=== PATIENT | female | born 1980 | race Caucasian/White ===

== ENCOUNTER 2017-08-29 05:45 | Observation (INO) | payer OTHER ==
[2017-08-29] MEDS ORDERED: SODIUM CHLORIDE 0.9% 1,000 ML IV STA (06:37)
[2017-08-29] MEDS ORDERED: SODIUM CHLORIDE 0.9% 500 ML IV STA (06:37)
[2017-08-29] MEDS ORDERED: ONDANSETRON 4 MG/2 ML VIAL IVP STA (06:37)
[2017-08-29] MEDS ORDERED: PANTOPRAZOLE 40 MG/10 ML VIAL IVP STA (06:38)
--- NOTE | 2017-08-29 06:40 | ED ---
General Adult HPI - General Chief complaint: Nausea/Vomiting/Diarrhea Stated complaint: N/V/D, rectal bleed Time Seen by Provider: 08/29/17 06:26 Source: patient, family, RN notes reviewed, old records reviewed Mode of arrival: ambulatory Limitations: no limitations - History of Present Illness Initial comments: This is a 36-year-old femalewho is presenting to the ER with severe nausea vomiting and diarrhea review. Patient is severely diarrhea, liquid diarrhea feels weak and lightheaded. No specific abdominal pain. No travel history. Patient states she has had some blood in her stool possibly from wiping.she has not been feeling good since yesterday. She has no known sick contacts no similar friends or family with similar symptoms. No fevers. no recent change in medications - Related Data Home Medications Medication Instructions Recorded Confirmed Ibuprofen [Motrin] 200 - 800 mg PO Q6HR PRN 08/29/17 08/29/17 Allergies Allergy/AdvReac Type Severity Reaction Status Date / Time No Known Allergies Allergy Verified 08/29/17 07:21 Review of Systems ROS Statement: Those systems with pertinent positive or pertinent negative responses have been documented in the HPI. ROS Other: All systems not noted in ROS Statement are negative. Past Medical History Past Medical History: No Reported History Additional Past Medical History / Comment(s): EPIGASTRIC PAIN, back pain History of Any Multi-Drug Resistant Organisms: None Reported Past Surgical History: Cholecystectomy, Hernia Repair, Tubal Ligation Additional Past Surgical History / Comment(s): Rhinoplasty Past Anesthesia/Blood Transfusion Reactions: No Reported Reaction Past Psychological History: No Psychological Hx Reported Smoking Status: Current every day smoker Past Alcohol Use History: Rare Past Drug Use History: None Reported - Past Family History Mother Family Medical History: Cancer, Deep Vein Thrombosis (DVT), Pulmonary Embolus Additional Family Medical History / Comment(s): COLON Father Family Medical History: Cancer Additional Family Medical History / Comment(s): PROSTATE General Exam Limitations: no limitations General appearance: alert, in no apparent distress Head exam: Present: atraumatic, normocephalic, normal inspection Eye exam: Present: normal appearance, PERRL, EOMI. Absent: scleral icterus, conjunctival injection, periorbital swelling ENT exam: Present: normal exam, mucous membranes moist Neck exam: Present: normal inspection. Absent: tenderness, meningismus, lymphadenopathy Respiratory exam: Present: normal lung sounds bilaterally. Absent: respiratory distress, wheezes, rales, rhonchi, stridor Cardiovascular Exam: Present: normal rhythm, tachycardia, normal heart sounds. Absent: systolic murmur, diastolic murmur, rubs, gallop, clicks GI/Abdominal exam: Present: soft, normal bowel sounds. Absent: distended, tenderness, guarding, rebound, rigid Extremities exam: Present: normal inspection, full ROM, normal capillary refill. Absent: tenderness, pedal edema, joint swelling, calf tenderness Back exam: Present: normal inspection Neurological exam: Present: alert, oriented X3, CN II-XII intact Psychiatric exam: Present: normal affect, normal mood Skin exam: Present: warm, dry, intact, normal color. Absent: rash Course Vital Signs 08/29/17 08/29/17 05:49 08:00 Temperature 99.0 F 98.5 F Pulse Rate 100 78 Respiratory 18 178 H Rate Blood Pressure 121/86 130/81 O2 Sat by Pulse 100 99 Oximetry - Reevaluation(s) Reevaluation #1: 08/29/17 07:20 patient is still is abdominal pain at this time bowel pain and bright red blood per rectum Medical Decision Making - Medical Decision Making 36 female to ER for evaluation. This patient presents for evaluation regarding bright red blood per rectum, abdominal pain. Significant bloody bowel movements , diarrhea or bloody diarrhea. Patient has CT positive for colitis, will admit for monitoring of hemoglobin, resuscitation - Lab Data Result diagrams: 08/29/17 18:28 08/29/17 06:10 Lab Results 08/29/17 08/29/17 08/29/17 Range/Units 06:10 06:10 06:10 WBC 18.3 H (3.8-10.6) k/uL RBC 5.26 (3.80-5.40) m/uL Hgb 16.0 (11.4-16.0) gm/dL Hct 49.1 H (34.0-46.0) % MCV 93.3 (80.0-100.0) fL MCH 30.5 (25.0-35.0) pg MCHC 32.6 (31.0-37.0) g/dL RDW 12.7 (11.5-15.5) % Plt Count 318 (150-450) k/uL Neutrophils % 86 % Lymphocytes % 10 % Monocytes % 4 % Eosinophils % 0 % Basophils % 0 % Neutrophils # 15.7 H (1.3-7.7) k/uL Lymphocytes # 1.8 (1.0-4.8) k/uL Monocytes # 0.7 (0-1.0) k/uL Eosinophils # 0.1 (0-0.7) k/uL Basophils # 0.0 (0-0.2) k/uL Sodium 139 (137-145) mmol/L Potassium 4.2 (3.5-5.1) mmol/L Chloride 103 (98-107) mmol/L Carbon Dioxide 22 (22-30) mmol/L Anion Gap 14 mmol/L BUN 9 (7-17) mg/dL Creatinine 0.60 (0.52-1.04) mg/dL Est GFR (MDRD) Af Amer >60 (>60 ml/min/1.73 sqM) Est GFR (MDRD) Non-Af >60 (>60 ml/min/1.73 sqM) Glucose 127 H (74-99) mg/dL Calcium 10.0 (8.4-10.2) mg/dL Phosphorus 4.4 (2.5-4.5) mg/dL Magnesium 1.9 (1.6-2.3) mg/dL Total Bilirubin 0.8 (0.2-1.3) mg/dL AST 41 H (14-36) U/L ALT 96 H (9-52) U/L Alkaline Phosphatase 117 (38-126) U/L Total Creatine Kinase 39 (30-135) U/L CK-MB (CK-2) 0.4 (0.0-2.4) ng/mL CK-MB (CK-2) Rel Index 1.0 C-Reactive Protein (<10.0) mg/L Total Protein 7.9 (6.3-8.2) g/dL Albumin 4.7 (3.5-5.0) g/dL Lipase (23-300) U/L Urine Color Urine Appearance (Clear) Urine pH (5.0-8.0) Ur Specific [place] (1.001-1.035) Urine Protein (Negative) Urine Glucose (UA) (Negative) Urine Ketones (Negative) Urine Blood (Negative) Urine Nitrite (Negative) Urine Bilirubin (Negative) Urine Urobilinogen (<2.0) mg/dL Ur Leukocyte Esterase (Negative) 08/29/17 08/29/17 08/29/17 Range/Units 06:10 06:10 06:45 WBC (3.8-10.6) k/uL RBC (3.80-5.40) m/uL Hgb (11.4-16.0) gm/dL Hct (34.0-46.0) % MCV (80.0-100.0) fL MCH (25.0-35.0) pg MCHC (31.0-37.0) g/dL RDW (11.5-15.5) % Plt Count (150-450) k/uL Neutrophils % % Lymphocytes % % Monocytes % % Eosinophils % % Basophils % % Neutrophils # (1.3-7.7) k/uL Lymphocytes # (1.0-4.8) k/uL Monocytes # (0-1.0) k/uL Eosinophils # (0-0.7) k/uL Basophils # (0-0.2) k/uL Sodium (137-145) mmol/L Potassium (3.5-5.1) mmol/L Chloride (98-107) mmol/L Carbon Dioxide (22-30) mmol/L Anion Gap mmol/L BUN (7-17) mg/dL Creatinine (0.52-1.04) mg/dL Est GFR (MDRD) Af Amer (>60 ml/min/1.73 sqM) Est GFR (MDRD) Non-Af (>60 ml/min/1.73 sqM) Glucose (74-99) mg/dL Calcium (8.4-10.2) mg/dL Phosphorus (2.5-4.5) mg/dL Magnesium (1.6-2.3) mg/dL Total Bilirubin (0.2-1.3) mg/dL AST (14-36) U/L ALT (9-52) U/L Alkaline Phosphatase (38-126) U/L Total Creatine Kinase (30-135) U/L CK-MB (CK-2) (0.0-2.4) ng/mL CK-MB (CK-2) Rel Index C-Reactive Protein 11.4 H (<10.0) mg/L Total Protein (6.3-8.2) g/dL Albumin (3.5-5.0) g/dL Lipase 23 (23-300) U/L Urine Color Yellow Urine Appearance Clear (Clear) Urine pH 6.0 (5.0-8.0) Ur Specific [place] 1.007 (1.001-1.035) Urine Protein Negative (Negative) Urine Glucose (UA) Negative (Negative) Urine Ketones Negative (Negative) Urine Blood Negative (Negative) Urine Nitrite Negative (Negative) Urine Bilirubin Negative (Negative) Urine Urobilinogen <2.0 (<2.0) mg/dL Ur Leukocyte Esterase Negative (Negative) - Radiology Data Radiology results: report reviewed (CT abdomen and pelvis is positive for colitis), image reviewed Disposition Clinical Impression: Gastroenteritis, Colitis, GIB (gastrointestinal bleeding) Disposition: ADMITTED IP TO THIS HOSP Condition: Fair
[2017-08-29 06:46] LABS: Basophils % (A) 0 %; CH 31.5; Eosinophils # (A) 0.1 k/uL (0-0.7); Eosinophils % (A) 0 %; HCT 49.1 % (34.0-46.0); HDW 2.73; Luc % (Auto) 1; Lymphocytes # (A) 1.8 k/uL (1.0-4.8); Lymphocytes % (A) 10 %; MCH 30.5 pg (25.0-35.0); MCHC 32.6 g/dL (31.0-37.0); MCV 93.3 fL (80.0-100.0); Mean Platelet Volume 8.1; Monocytes # (A) 0.7 k/uL (0-1.0); Monocytes % (A) 4 %; Neutrophils # (A) 15.7 k/uL (1.3-7.7); Neutrophils % (A) 86 %; RBC 5.26 m/uL (3.80-5.40); RDW 12.7 % (11.5-15.5); WBC 18.3 k/uL (3.8-10.6); WBC (Perox) 17.36
[2017-08-29] MEDS ORDERED: RX INFO: IV CONTRAST WAS GIVEN 1 EACH MISC MISCELLANE PRN (06:46)
[2017-08-29] MEDS ORDERED: diphenhydrAMINE 50 MG/ML 1 ML VIAL IVP STA (06:46)
[2017-08-29] MEDS ORDERED: KETOROLAC 30 MG/ML 1 ML VIAL IVP STA (06:46)
[2017-08-29] MEDS ORDERED: LORazepam 2 MG/ML INJ IV STA ×2 (06:46→10:46)
[2017-08-29] MEDS ORDERED: MORPHINE SULFATE 10 MG/ML SYRINGE IVP STA ×2 (06:46→18:39)
[2017-08-29 06:55] LABS: Appearance,Urine Clear (Clear); Bilirubin,Urine Negative (Negative); Glucose,Urine (UA) Negative (Negative); Ketones,Urine Negative (Negative); Leukocyte Esterase,Urine Negative (Negative); Nitrite,Urine Negative (Negative); Protein,Urine Negative (Negative); Specific Gravity,Urine 1.007 (1.001-1.035); UA Billing (MACRO vs. MICRO) CHEM; Urobilinogen,Urine <2.0 mg/dL (<2.0)
[2017-08-29 06:56] LABS: ALT 96 U/L (9-52); AST 41 U/L (14-36); Alkaline Phosphatase 117 U/L (38-126); Anion Gap 14 mmol/L; Blood Urea Nitrogen 9 mg/dL (7-17); Carbon Dioxide 22 mmol/L (22-30); Chloride 103 mmol/L (98-107); Glucose 127 mg/dL (74-99); Magnesium 1.9 mg/dL (1.6-2.3); Non-African American GFR(MDRD) >60 (>60 ml/min/1.73 sqM); Phosphorus 4.4 mg/dL (2.5-4.5); Potassium 4.2 mmol/L (3.5-5.1); Sodium 139 mmol/L (137-145); Total Bilirubin 0.8 mg/dL (0.2-1.3); Total Protein 7.9 g/dL (6.3-8.2)
[2017-08-29 07:16] LABS: Creatine Kinase MB 0.4 ng/mL (0.0-2.4)
[2017-08-29] MEDS ORDERED: SODIUM CHLORIDE 0.9% 1,000 ML IV ONE (07:19)
--- NOTE | 2017-08-29 08:20 | CT ---
EXAMINATION TYPE: CT abdomen pelvis w con DATE OF EXAM: 08/29/2017 HISTORY: Nausea, Vomiting, Diarrhea, rectal bleeding CT DLP: 1277mGycm Automated Exposure Control for Dose Reduction was Utilized. CONTRAST: CT scan of the abdomen and pelvis is performed without oral but with IV Contrast, patient injected wi th 100 mL of Omnipaque 300. COMPARISON: CT scan of pelvis June 14, 2016 FINDINGS: LUNG BASES: No significant abnormality is appreciated. LIVER/GB: There has been interval cholecystectomy with new clips noted. PANCREAS: No significant abnormality is seen. SPLEEN: No significant abnormality is seen. ADRENALS: No significant abnormality is seen. KIDNEYS: Subcentimeter low dense lesion upper pole level right kidney is too small to further charact erize per presumed benign lateral aspect image 25 series 7. BOWEL: No evaluation bowel is suboptimal secondary to lack of enteric contrast. There is no suspicio us small or large bowel dilatation identified. There is moderate to severe wall thickening in the col on from roughly level of hepatic flexure through entire transverse colon into left colon and sigmoid colon up to level of rectum. There is relative sparing of cecum noted. Finding is new from prior CT. UTERUS/ADNEXA: Rim hyperdense 2.1 cm lesion within left ovary is felt to reflect corpus luteal cyst f rom recent ovulation on axial image 66. LYMPH NODES: No greater than 1cm abdominal or pelvic lymph nodes are appreciated. OSSEOUS STRUCTURES: Sacroiliac joints are maintained. OTHER: No significant additional abnormality is seen. IMPRESSION: 1. New fairly long segment contiguous colitis with relative sparing of cecum and right colon from hep atic flexure through rectum, differential includes inflammatory or ulcerative colitis, pseudomembrano us colitis, and infectious colitis. Clinical correlation advised. No bowel obstruction is seen.
[2017-08-29 08:37] VITALS: BMI 24.5
--- NOTE | 2017-08-29 10:07 | P.HPIM ---
History of Present Illness H&P Date: 08/29/17 Chief Complaint: bloody diarrhea This is a 36-year-old female with a presents with 1 day history of bloody diarrhea. Patient says symptoms started last night has had multiple episodes to stem. His associated with some abdominal cramping. Subjective fever patient says she's been feeling cold also. No dysuria. No chest pain or palpitations. Denies having anything unusual to eat. Patient also denies having any family members have been sick. Review of Systems Constitutional: Reports fever Eyes: denies blurred vision, denies diplopia Ears, nose, mouth and throat: Denies headache, Denies sore throat Cardiovascular: Denies chest pain, Denies palpitations Gastrointestinal: Reports abdominal pain, Reports BRBPR, Reports nausea, Reports vomiting Genitourinary: Denies flank pain, Denies vaginal discharge Musculoskeletal: Denies frequent falls, Denies neck stiffness Integumentary: Denies rash Neurological: Reports weakness Psychiatric: Denies depression Endocrine: Denies polyuria Hematologic/Lymphatic: Denies easy bruising, Denies lymphadenopathy Past Medical History Past Medical History: No Reported History Additional Past Medical History / Comment(s): EPIGASTRIC PAIN, back pain History of Any Multi-Drug Resistant Organisms: None Reported Past Surgical History: Cholecystectomy, Hernia Repair, Tubal Ligation Additional Past Surgical History / Comment(s): Rhinoplasty Past Anesthesia/Blood Transfusion Reactions: No Reported Reaction Past Psychological History: No Psychological Hx Reported Smoking Status: Current every day smoker Past Alcohol Use History: Rare Additional Past Alcohol Use History / Comment(s): SMOKES 1PPD FROM AGE 15 (1995) Past Drug Use History: None Reported - Past Family History Mother Family Medical History: Cancer, Deep Vein Thrombosis (DVT), Pulmonary Embolus Additional Family Medical History / Comment(s): COLON Father Family Medical History: Cancer Additional Family Medical History / Comment(s): PROSTATE Medications and Allergies Home Medications Medication Instructions Recorded Confirmed Type Ibuprofen [Motrin] 200 - 800 mg PO Q6HR PRN 08/29/17 08/29/17 History Allergies Allergy/AdvReac Type Severity Reaction Status Date / Time No Known Allergies Allergy Verified 08/29/17 07:21 Physical Exam Vitals: Vital Signs Temp Pulse Pulse Resp BP BP Pulse Ox 08/29/17 08:31 97.5 F L 81 16 144/85 100 08/29/17 08:00 98.5 F 78 178 H 130/81 99 08/29/17 05:49 99.0 F 100 18 121/86 100 Intake and Output 08/28/17 08/29/17 08/29/17 22:59 06:59 14:59 Other: Weight 58.967 kg 58.9 kg Patient Weight 08/30/17 06:59 Weight 58.9 kg - EENT Eyes: EOMI, PERRLA - Neck Neck: no lymphadenopathy, normal ROM, no rigidity - Respiratory Respiratory: bilateral: CTA, negative: rales, rhonchi, wheezing - Cardiovascular Rhythm: regular Heart sounds: normal: S1, S2 - Gastrointestinal General gastrointestinal: no organomegaly, soft, no tenderness - Integumentary Integumentary: normal, no rash - Neurologic Neurologic: CNII-XII intact - Psychiatric Psychiatric: A&O x's 3, appropriate affect, intact judgment & insight No low extremity edema Results CBC & Chem 7: 08/29/17 06:10 08/29/17 06:10 Labs: Abnormal Lab Results - Last 24 Hours (Table) 08/29/17 08/29/17 Range/Units 06:10 06:10 WBC 18.3 H (3.8-10.6) k/uL Hct 49.1 H (34.0-46.0) % Neutrophils # 15.7 H (1.3-7.7) k/uL Glucose 127 H (74-99) mg/dL AST 41 H (14-36) U/L ALT 96 H (9-52) U/L Assessment and Plan (1) GIB (gastrointestinal bleeding) Narrative/Plan: Serial H&H Secondary to rule colitis Rule out inflammatory bowel disease Current Visit: Yes Status: Acute Code(s): K92.2 - GASTROINTESTINAL HEMORRHAGE, UNSPECIFIED SNOMED Code(s): 21235107 (2) Colitis Narrative/Plan: GI to evaluate rule out ulcerative colitis We'll start IV antibiotics Current Visit: Yes Status: Acute Code(s): K52.9 - NONINFECTIVE GASTROENTERITIS AND COLITIS, UNSPECIFIED SNOMED Code(s): 02815615
[2017-08-29] MEDS: ERTAPENEM 1 GM in SODIUM CHLORIDE 0.9% 50 ML IVPB SCH (10:42)
--- NOTE | 2017-08-29 10:51 | P.CONS ---
History of Present Illness - Reason for Consult Consult date: 08/29/17 GI bleed colitis Requesting physician: Mignon Lee - History of Present Illness 36-year-old female with no PCP past medical history of cholecystectomy, nicotine cigarette dependency presents with acute onset of abdominal cramping followed by multiple gross bloody bowel movements and a few nonbloody emesis. Denies fever or chills melena or hematemesis. No weight loss, skin rashes or changes in vision. Symptoms started around 9 PM yesterday and has since tapered off. No further emesis however patient had 3 smaller bowel movements this morning mostly blood minimal stool. Recent penicillin usage for dental infection about 2 weeks ago. Takes Aleve 2-3 tablets daily sometimes twice daily for chronic arthritic pain. CT abdomen and pelvis without oral contrast reported moderate to severe wall thickening in the colon from the level of hepatic flexure through the anterior transverse and left colon and sigmoid up to level of rectum possible inflammatory colitis possible pseudomembranous infectious colitis. No personal or familial history of inflammatory bowel disease. No history of EGD colonoscopy. No history of colitis or GI bleed. No alcohol or excessive usage of aspirin or anticoagulant medications. Her biological mother was diagnosed with colon carcinoma at 52 years of age went to [facility] and underwent bowel resection with genetic testing. Mother is at bedside and states that she was advised to have all of her children genetically tested but could not qualify if her colon cancer was genetic in origin. Additionally mother stated she had multiple emboli after surgery and takes anticoagulation on a daily basis but again cannot qualify what type of hypercoagulable condition she was given. Admission white count 18.3. Hemoglobin 16. BUN 9. Creatinine 0.6. Total bilirubin 0.8. AST 41. ALT 96. Alkaline phosphatase 117. Lipase 23. Stool studies requested and pending. Receiving Invanz. Review of Systems Constitutional: Denies fever, chills, sweats, weight gain, or loss. HEENT: Negative for migraines, blurred vision or loss, earaches, drainage, tinnitus, oral mucosal lesions, dysphagia, or odynophagia. CARDIAC: Negative for chest pain, arrhythmias, or palpitation. RESPIRATORY: Negative for shortness of breath, hemoptysis, cough, or sputum production. GI: See HPI for pertinent findings. : Negative for hematuria, urgency, frequency, polyuria, or dysuria. GYNc: Denies possibility of . Negative vaginal discharge. MUSCULOSKELETAL: Negative for muscle aches, swelling, arthritis, and arthralgias. NEUROLOGIC: Negative for stroke or TIA. ENDOCRINE: Negative for thyroid problems. SKIN: Negative for rash or itching. PSYCHIATRIC: Negative history for depression and anxiety Past Medical History Past Medical History: No Reported History Additional Past Medical History / Comment(s): EPIGASTRIC PAIN, back pain History of Any Multi-Drug Resistant Organisms: None Reported Past Surgical History: Cholecystectomy, Hernia Repair, Tubal Ligation Additional Past Surgical History / Comment(s): Rhinoplasty Past Anesthesia/Blood Transfusion Reactions: No Reported Reaction Past Psychological History: No Psychological Hx Reported Smoking Status: Current every day smoker Past Alcohol Use History: Rare Additional Past Alcohol Use History / Comment(s): SMOKES 1PPD FROM AGE 15 (1995) Past Drug Use History: None Reported - Past Family History Mother Family Medical History: Cancer, Deep Vein Thrombosis (DVT), Pulmonary Embolus Additional Family Medical History / Comment(s): COLON Father Family Medical History: Cancer Additional Family Medical History / Comment(s): PROSTATE Medications and Allergies Home Medications Medication Instructions Recorded Confirmed Type Ibuprofen [Motrin] 200 - 800 mg PO Q6HR PRN 08/29/17 08/29/17 History Allergies Allergy/AdvReac Type Severity Reaction Status Date / Time No Known Allergies Allergy Verified 08/29/17 07:21 Physical Exam Vitals: Vital Signs Temp Pulse Pulse Resp BP BP Pulse Ox 08/29/17 08:31 97.5 F L 81 16 144/85 100 08/29/17 08:00 98.5 F 78 178 H 130/81 99 08/29/17 05:49 99.0 F 100 18 121/86 100 Intake and Output 08/28/17 08/29/17 08/29/17 22:59 06:59 14:59 Other: Weight 58.967 kg 58.9 kg Patient Weight 08/30/17 06:59 Weight 58.9 kg General appearance: The patient is alert, oriented, in no acute distress. HET: Head is normocephalic and atraumatic. Pupils are equal and reactive. Oropharynx is clear without lesions. Neck: Supple without lymphadenopathy. Trachea midline. Heart: S1 S2. Regular rate and rhythm. Lungs: No crackles or wheezes are heard. Abdomen: Soft, mild tenderness across mid to lower abdomen bilaterally, nondistended with bowel sounds. No peritoneal signs. No palpable organomegaly or masses. Extremities: Normal skin color and turgor. No cyanosis, rash, ulceration, clubbing, or edema. Radial and pedal pulses are 2/4 bilaterally. Neurological: No focal deficits. Strength and sensation are grossly intact. Results CBC & Chem 7: 08/29/17 06:10 08/29/17 06:10 Labs: Abnormal Lab Results - Last 24 Hours (Table) 08/29/17 08/29/17 Range/Units 06:10 06:10 WBC 18.3 H (3.8-10.6) k/uL Hct 49.1 H (34.0-46.0) % Neutrophils # 15.7 H (1.3-7.7) k/uL Glucose 127 H (74-99) mg/dL AST 41 H (14-36) U/L ALT 96 H (9-52) U/L CT scan - abdomen: report reviewed (Dr. Hicks) Assessment and Plan (1) Colitis Narrative/Plan: 36-year-old female presents with one-day history of sudden onset of abdominal cramping and bloody diarrhea with CT imaging suggestive of inflammatory possible infectious possible ischemic colitis with underlying history of nicotine cigarette dependency and chronic NSAID usage. Biological mother has a history of colon carcinoma and thromboembolism. Current Visit: Yes Status: Acute Code(s): K52.9 - NONINFECTIVE GASTROENTERITIS AND COLITIS, UNSPECIFIED SNOMED Code(s): 56755623 (2) GIB (gastrointestinal bleeding) Current Visit: Yes Status: Acute Code(s): K92.2 - GASTROINTESTINAL HEMORRHAGE, UNSPECIFIED SNOMED Code(s): 58909540 (3) Encounter for monitoring chronic NSAID therapy Current Visit: Yes Status: Acute Code(s): Z51.81 - ENCOUNTER FOR THERAPEUTIC DRUG LEVEL MONITORING; Z79.1 - SHELTER (CURRENT) USE OF NON- STEROIDAL NON-INFLAM (NSAID) SNOMED Code(s): 031321410 (4) Nicotine dependence Current Visit: Yes Status: Acute Code(s): F17.200 - NICOTINE DEPENDENCE, UNSPECIFIED, UNCOMPLICATED SNOMED Code(s): 47675372 (5) Leukocytosis Current Visit: Yes Status: Acute Code(s): D72.829 - ELEVATED WHITE BLOOD CELL COUNT, UNSPECIFIED SNOMED Code(s): 963239933 Plan: 1. Continue antibiotics. Stool studies pending. 2. Clear liquid diet. We'll proceed with colonoscopy evaluation tomorrow. 3. CBC monitoring. 4. Hold NSAIDs and aspirin. 5. HCG testing. The demolition crane operator has discussed the risks, benefits and alternative therapies for the above-mentioned procedure and for both sedation/analgesia as well as necessary blood product administration, if indicated, as they pertain to this patient. The patient has indicated understanding and acceptance of the risks and procedures discussed. Thank you for this kind referral and the opportunity to participate in the care of your patient. This consultation was discussed with Dr. Hicks. The impression and plan of care have been directed as dictated.
[2017-08-29 11:20] LABS: CH 31.4; CHCM 33.7; HCT 39.1 % (34.0-46.0); HDW 2.72; MCH 31.1 pg (25.0-35.0); MCHC 33.2 g/dL (31.0-37.0); MCV 93.7 fL (80.0-100.0); Mean Platelet Volume 7.9; RBC 4.17 m/uL (3.80-5.40); RDW 12.7 % (11.5-15.5); WBC 10.8 k/uL (3.8-10.6)
[2017-08-29] MEDS ORDERED: PEG 3350-NA SULF,BICARB,CL/KCL 4,000 ML BOTTLE PO ONE (16:00)
[2017-08-29] MEDS: ONDANSETRON 4 MG/2 ML VIAL IVP PRN (17:17)
[2017-08-29 19:15] LABS: CH 31.4; CHCM 33.5; HCT 38.8 % (34.0-46.0); HGB 12.3 gm/dL (11.4-16.0); MCH 29.9 pg (25.0-35.0); MCHC 31.7 g/dL (31.0-37.0); MCV 94.4 fL (80.0-100.0); Mean Platelet Volume 7.9; RBC 4.11 m/uL (3.80-5.40); RDW 12.8 % (11.5-15.5); WBC 7.2 k/uL (3.8-10.6)
[2017-08-29 21:14] VITALS: TEMP 97.7
[2017-08-30 01:15] VITALS: RESP 16
[2017-08-30 01:39] LABS: CH 30.2; CHCM 33.2; HCT 36.8 % (34.0-46.0); HDW 2.57; HGB 11.9 gm/dL (11.4-16.0); MCH 29.7 pg (25.0-35.0); MCHC 32.5 g/dL (31.0-37.0); MCV 91.5 fL (80.0-100.0); Mean Platelet Volume 8.5; RBC 4.02 m/uL (3.80-5.40); RDW 13.5 % (11.5-15.5); WBC 7.3 k/uL (3.8-10.6)
[2017-08-30 06:37] LABS: CH 31.4; CHCM 33.7; HCT 36.9 % (34.0-46.0); HDW 2.69; HGB 12.1 gm/dL (11.4-16.0); MCH 30.8 pg (25.0-35.0); MCHC 32.9 g/dL (31.0-37.0); MCV 93.7 fL (80.0-100.0); Mean Platelet Volume 7.7; RBC 3.94 m/uL (3.80-5.40); RDW 12.6 % (11.5-15.5); WBC 6.3 k/uL (3.8-10.6)
[2017-08-30 06:54] LABS: Anion Gap 5 mmol/L; Blood Urea Nitrogen 8 mg/dL (7-17); Calcium 8.6 mg/dL (8.4-10.2); Carbon Dioxide 25 mmol/L (22-30); Chloride 110 mmol/L (98-107); Glucose 96 mg/dL (74-99); Non-African American GFR(MDRD) >60 (>60 ml/min/1.73 sqM); Potassium 3.7 mmol/L (3.5-5.1); Sodium 140 mmol/L (137-145)
[2017-08-30] MEDS: ONDANSETRON 4 MG/2 ML VIAL IVP PRN ×2 (08:08→14:53)
[2017-08-30] MEDS ORDERED: LACTATED RINGERS 1,000 ML IV ONE (13:03)
[2017-08-30] MEDS ORDERED: PROPOFOL 10 MG/ML 20 ML VIAL IV ONE (13:04)
--- NOTE | 2017-08-30 13:27 | P.PCN ---
Date of Procedure: 08/30/17 Procedure(s) Performed: BRIEF HISTORY: Patient is a 36-year-old pleasant white female, scheduled for an elective colonoscopy as a part of acute lower GI bleed. She was a [facility] with lower abdominal pain followed by multiple episodes of bright rectal blood per rectum for the last 3-4 hours duration. PROCEDURE PERFORMED: Colonoscopy with biopsy. PREOPERATIVE DIAGNOSIS: Lower abdominal pain and acute lower GI bleeding. IV sedation per Anesthesia. PROCEDURE: After informed consent was obtained, the patient, was brought into the endoscopy unit. IV sedation was administered by Anesthesia under continuous monitoring. Digital rectal examination was normal. Initially the Olympus CF- 160 flexible video colonoscope was then inserted in the rectum, gradually advanced into the cecum without any difficulty. Careful examination was performed as the scope was gradually being withdrawn. Ileocecal valve and the appendiceal orifice were visualized and appeared normal. Prep was excellent. Mucosa of the cecum, ascending colon, transverse colon, descending colon, appeared normal. There was some segmental colitis noted in the sigmoid colon and ascending from 25-30 cm from the anal verge with mucosal erythema and friability but no ulcerations or erosions seen and biopsies were done from this area to evaluate for infectious colitis versus ischemic colitis. The rest of the sigmoid colon, and rectum appeared normal. Retroflexion was performed in the rectum and no lesions were seen. The patient tolerated the procedure well. IMPRESSION: Mild segmental colitis involving the sigmoid colon and sent from 35-30 cm from the anal verge with mucosal erythema and friability but no erosions or ulcerations seen status post biopsies to rule out infectious colitis versus ischemic colitis. Rest of the colon appeared normal. RECOMMENDATIONS: Findings of this examination were discussed with the patient as well as a family. She was advised to follow with the biopsy results. In the meantime her diet will be advanced as tolerated and she can be discharged home with outpatient follow up in 2-3 weeks..
[2017-08-30 13:42] VITALS: BP 141/79; PULSE 62
[2017-08-30 14:39] LABS: CH 31.4; CHCM 34.2; HCT 35.3 % (34.0-46.0); HDW 2.72; HGB 11.6 gm/dL (11.4-16.0); MCH 30.2 pg (25.0-35.0); MCHC 32.7 g/dL (31.0-37.0); MCV 92.3 fL (80.0-100.0); RBC 3.83 m/uL (3.80-5.40); RDW 12.5 % (11.5-15.5); WBC 6.9 k/uL (3.8-10.6)
[2017-08-30] MEDS: ERTAPENEM 1 GM in SODIUM CHLORIDE 0.9% 50 ML IVPB SCH (14:53)
== END 2017-08-30 16:52 | disposition home or self-care (01) ==
LOC: EC 05:45 → 6SEL 07:19 → INTOOBSV 07:19
PROVIDERS: ADMIT Family Medicine; ATTEND Family Medicine
DX: K52.9 Noninfective gastroenteritis and colitis, unspecified (principal); K63.89 Other specified diseases of intestine; F17.210 Nicotine dependence, cigarettes, uncomplicated; G89.29 Other chronic pain; M19.90 Unspecified osteoarthritis, unspecified site; Z90.49 Acquired absence of other specified parts of digestive tract; Z79.1 Long term (current) use of non-steroidal anti-inflammatories (NSAID); Z80.0 Family history of malignant neoplasm of digestive organs; Z83.2 Family history of diseases of the blood and blood-forming organs and certain disorders involving the immune mechanism
CPT/HCPCS: 99285 ×2; 96375 ×7; 96361; 96376 ×3; 96365; 36415; 88305; 80053; 80048; 82550; 82553; 83690; 83735; 84100; 85025; 85027 ×2; 86140; 81003; 88313; 84703; 87324; 83993; 87086; 87045; 89055; 87046; 74177; 45380; G0378 ×3; J2060; J1200; J2270; J2405 ×2; J1885; J1335 ×2; Q9967; J2704; C9113

== ENCOUNTER 2017-09-13 06:32 | Emergency (ER) | payer OTHER ==
[2017-09-13] MEDS ORDERED: DIAZEPAM 5 MG/ML (10 ML MDV) IVP STA (07:13)
[2017-09-13] MEDS ORDERED: KETOROLAC 30 MG/ML 1 ML VIAL IVP STA (07:13)
[2017-09-13] MEDS ORDERED: SODIUM CHLORIDE 0.9% 1,000 ML IV ONE (07:13)
--- NOTE | 2017-09-13 07:18 | ED ---
General Adult HPI - General Chief complaint: Neck Pain/Injury Stated complaint: cramping Source: patient, RN notes reviewed, old records reviewed Mode of arrival: ambulatory Limitations: no limitations - History of Present Illness Initial comments: 36-year-old presenting with four-hour history of left shoulder pain, right thumb pain, neck pain, chest pain. Patient states that approximately 3 PM this evening she developed left shoulder pain. This worsened over hours. Denies any trauma. Denies fever or chills. She does have pain with movement of the left shoulder. She also complains of a similar pain in her right thumb and her neck. Denies fever. Denies abdominal pain. Denies vomiting. Denies diarrhea. Patient had recent hospital admission with colitis. She is not currently on any medication. Denies difficulty breathing. Denies headache. Denies dysuria. Denies any symptoms in her lower extremities. - Related Data Home Medications Medication Instructions Recorded Confirmed Ibuprofen [Motrin] 200 - 800 mg PO Q6HR PRN 08/29/17 09/13/17 Previous Rx's Medication Instructions Recorded Ibuprofen [Motrin] 600 mg PO Q8HR PRN #24 tab 09/13/17 methylPREDNISolone Dose Pack 4 mg PO DIRECTED #21 package 09/13/17 [Medrol Dose Pack] Allergies Allergy/AdvReac Type Severity Reaction Status Date / Time No Known Allergies Allergy Verified 09/13/17 07:43 Review of Systems ROS Statement: Those systems with pertinent positive or pertinent negative responses have been documented in the HPI. ROS Other: All systems not noted in ROS Statement are negative. Past Medical History Past Medical History: No Reported History Additional Past Medical History / Comment(s): EPIGASTRIC PAIN, back pain, History of Any Multi-Drug Resistant Organisms: None Reported Past Surgical History: Cholecystectomy, Hernia Repair, Tubal Ligation Additional Past Surgical History / Comment(s): Rhinoplasty, Past Anesthesia/Blood Transfusion Reactions: No Reported Reaction Past Psychological History: No Psychological Hx Reported Smoking Status: Current every day smoker Past Alcohol Use History: Rare Past Drug Use History: None Reported - Past Family History Mother Family Medical History: Cancer, Deep Vein Thrombosis (DVT), Pulmonary Embolus Additional Family Medical History / Comment(s): COLON Father Family Medical History: Cancer Additional Family Medical History / Comment(s): PROSTATE General Exam Limitations: no limitations General appearance: alert, in no apparent distress Head exam: Present: atraumatic, normocephalic Eye exam: Present: normal appearance, PERRL, EOMI. Absent: scleral icterus, conjunctival injection ENT exam: Present: mucous membranes dry Neck exam: Present: normal inspection, tenderness, full ROM. Absent: meningismus Respiratory exam: Present: normal lung sounds bilaterally. Absent: respiratory distress, wheezes Cardiovascular Exam: Present: regular rate, normal rhythm GI/Abdominal exam: Present: soft. 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 Right thumb: pain with range of motion, no erythema, no swelling.) Neurological exam: Present: alert, oriented X3, CN II-XII intact. Absent: motor sensory deficit Psychiatric exam: Present: normal affect, normal mood Skin exam: Present: warm, dry, intact. Absent: cyanosis, diaphoretic Course Vital Signs 09/13/17 06:34 Temperature 98.5 F Pulse Rate 109 H Respiratory 18 Rate Blood Pressure 145/92 O2 Sat by Pulse 100 Oximetry - Reevaluation(s) Reevaluation #1: 09/13/17 09:03 On reevaluation, patient's pain is improved. EKG Findings - EKG Comments: EKG Findings:: EKG shows normal sinus rhythm, early repolarization, ventricular rate 90, OK interval 136, QRS duration 84, QTC 447 Medical Decision Making - Medical Decision Making 36 yo female presenting with atraumatic left shoulder, right thumb, and neck pain. Patient was diagnosed with colitis proximately 2 weeks ago. She was treated with metronidazole and ciprofloxacin. She states she did not complete his treatment. She denies any abdominal pain or vomiting or diarrhea. Denies fever or chills. Denies rash. On exam there is tenderness to the right thumb with range of motion, pain with range of motion in the left shoulder, no overlying warmth or erythema. No midline cervical tenderness. Laboratory studies are obtained, there is an elevation of white blood cell count 16.5, hemoglobin 15.4, AST and ALT are mildly elevated, CRP is 35 which is elevated. Urinalysis shows 1+ protein. Patient's presentation is consistent with polyarthritis. This may be reactive to recent bout of colitis. Case is discussed with the physician tax accounting assistant from Dr. contreras's office. They will see the patient in their office. Recommend steroids at this time. Patient is given strict return parameters including development of fever, worsening of pain despite treatment, or the development of new symptoms. Diagnosis: Polyarthritis, leukocytosis, concern for reactive arthritis - Lab Data Result diagrams: 09/13/17 06:50 09/13/17 06:50 Lab Results 09/13/17 09/13/17 09/13/17 Range/Units 06:50 06:50 06:50 WBC 16.5 H (3.8-10.6) k/uL RBC 4.92 (3.80-5.40) m/uL Hgb 15.0 D (11.4-16.0) gm/dL Hct 46.2 H (34.0-46.0) % MCV 93.8 (80.0-100.0) fL MCH 30.4 (25.0-35.0) pg MCHC 32.4 (31.0-37.0) g/dL RDW 13.6 (11.5-15.5) % Plt Count 280 (150-450) k/uL Neutrophils % 89 % Lymphocytes % 8 % Monocytes % 2 % Eosinophils % 1 % Basophils % 0 % Neutrophils # 14.6 H (1.3-7.7) k/uL Lymphocytes # 1.3 (1.0-4.8) k/uL Monocytes # 0.4 (0-1.0) k/uL Eosinophils # 0.1 (0-0.7) k/uL Basophils # 0.1 (0-0.2) k/uL Sodium 139 (137-145) mmol/L Potassium 4.5 (3.5-5.1) mmol/L Chloride 101 (98-107) mmol/L Carbon Dioxide 26 (22-30) mmol/L Anion Gap 12 mmol/L BUN 8 (7-17) mg/dL Creatinine 0.56 (0.52-1.04) mg/dL Est GFR (MDRD) Af Amer >60 (>60 ml/min/1.73 sqM) Est GFR (MDRD) Non-Af >60 (>60 ml/min/1.73 sqM) Glucose 145 H (74-99) mg/dL Calcium 9.7 (8.4-10.2) mg/dL Total Bilirubin 0.8 (0.2-1.3) mg/dL AST 88 H (14-36) U/L ALT 98 H (9-52) U/L Alkaline Phosphatase 91 (38-126) U/L Troponin I <0.012 (0.000-0.034) ng/mL C-Reactive Protein 34.7 H (<10.0) mg/L Total Protein 7.7 (6.3-8.2) g/dL Albumin 4.7 (3.5-5.0) g/dL Urine Color Urine Appearance (Clear) Urine pH (5.0-8.0) Ur Specific [place] (1.001-1.035) Urine Protein (Negative) Urine Glucose (UA) (Negative) Urine Ketones (Negative) Urine Blood (Negative) Urine Nitrite (Negative) Urine Bilirubin (Negative) Urine Urobilinogen (<2.0) mg/dL Ur Leukocyte Esterase (Negative) Urine WBC (0-5) /hpf Ur Squamous Epith Cells (0-4) /hpf Urine Mucus (None) /hpf Urine HCG, Qual (Not Detectd) 09/13/17 09/13/17 Range/Units 07:55 07:55 WBC (3.8-10.6) k/uL RBC (3.80-5.40) m/uL Hgb (11.4-16.0) gm/dL Hct (34.0-46.0) % MCV (80.0-100.0) fL MCH (25.0-35.0) pg MCHC (31.0-37.0) g/dL RDW (11.5-15.5) % Plt Count (150-450) k/uL Neutrophils % % Lymphocytes % % Monocytes % % Eosinophils % % Basophils % % Neutrophils # (1.3-7.7) k/uL Lymphocytes # (1.0-4.8) k/uL Monocytes # (0-1.0) k/uL Eosinophils # (0-0.7) k/uL Basophils # (0-0.2) k/uL Sodium (137-145) mmol/L Potassium (3.5-5.1) mmol/L Chloride (98-107) mmol/L Carbon Dioxide (22-30) mmol/L Anion Gap mmol/L BUN (7-17) mg/dL Creatinine (0.52-1.04) mg/dL Est GFR (MDRD) Af Amer (>60 ml/min/1.73 sqM) Est GFR (MDRD) Non-Af (>60 ml/min/1.73 sqM) Glucose (74-99) mg/dL Calcium (8.4-10.2) mg/dL Total Bilirubin (0.2-1.3) mg/dL AST (14-36) U/L ALT (9-52) U/L Alkaline Phosphatase (38-126) U/L Troponin I (0.000-0.034) ng/mL C-Reactive Protein (<10.0) mg/L Total Protein (6.3-8.2) g/dL Albumin (3.5-5.0) g/dL Urine Color Yellow Urine Appearance Cloudy H (Clear) Urine pH 5.5 (5.0-8.0) Ur Specific [place] 1.026 (1.001-1.035) Urine Protein 1+ H (Negative) Urine Glucose (UA) Negative (Negative) Urine Ketones Negative (Negative) Urine Blood Negative (Negative) Urine Nitrite Negative (Negative) Urine Bilirubin Negative (Negative) Urine Urobilinogen <2.0 (<2.0) mg/dL Ur Leukocyte Esterase Small H (Negative) Urine WBC 5 (0-5) /hpf Ur Squamous Epith Cells 27 H (0-4) /hpf Urine Mucus Moderate H (None) /hpf Urine HCG, Qual Not Detected (Not Detectd) Disposition Clinical Impression: Leukocytosis, Polyarthritis Disposition: HOME SELF-CARE Condition: Good Instructions: Arthralgia (ED), Swollen Joint (ED) Prescriptions: Ibuprofen [Motrin] 600 mg PO Q8HR PRN #24 tab PRN Reason: Pain methylPREDNISolone Dose Pack [Medrol Dose Pack] 4 mg PO DIRECTED #21 package Referrals: None,Stated [Primary Care Provider] - 1-2 days Vero Contreras MD [STAFF PHYSICIAN] - 1-2 days Time of Disposition: 09:08
[2017-09-13 07:37] LABS: ALT 98 U/L (9-52); AST 88 U/L (14-36); Alkaline Phosphatase 91 U/L (38-126); Anion Gap 12 mmol/L; Blood Urea Nitrogen 8 mg/dL (7-17); Calcium 9.7 mg/dL (8.4-10.2); Carbon Dioxide 26 mmol/L (22-30); Chloride 101 mmol/L (98-107); Glucose 145 mg/dL (74-99); Non-African American GFR(MDRD) >60 (>60 ml/min/1.73 sqM); Potassium 4.5 mmol/L (3.5-5.1); Sodium 139 mmol/L (137-145); Total Bilirubin 0.8 mg/dL (0.2-1.3); Total Protein 7.7 g/dL (6.3-8.2)
[2017-09-13 07:41] LABS: Basophils # (A) 0.1 k/uL (0-0.2); Basophils % (A) 0 %; CH 31.2; CHCM 33.4; Eosinophils # (A) 0.1 k/uL (0-0.7); Eosinophils % (A) 1 %; HCT 46.2 % (34.0-46.0); HDW 2.32; Luc # (Auto) 0.05; Luc % (Auto) 0; Lymphocytes # (A) 1.3 k/uL (1.0-4.8); Lymphocytes % (A) 8 %; MCH 30.4 pg (25.0-35.0); MCHC 32.4 g/dL (31.0-37.0); MCV 93.8 fL (80.0-100.0); Mean Platelet Volume 8.6; Monocytes # (A) 0.4 k/uL (0-1.0); Monocytes % (A) 2 %; Neutrophils # (A) 14.6 k/uL (1.3-7.7); Neutrophils % (A) 89 %; RBC 4.92 m/uL (3.80-5.40); RDW 13.6 % (11.5-15.5); WBC 16.5 k/uL (3.8-10.6); WBC (Perox) 16.84
[2017-09-13 08:14] LABS: Appearance,Urine Cloudy (Clear); Bilirubin,Urine Negative (Negative); Glucose,Urine (UA) Negative (Negative); Ketones,Urine Negative (Negative); Leukocyte Esterase,Urine Small (Negative); Mucus,Urine Moderate /hpf; Nitrite,Urine Negative (Negative); PH, Urine 5.5 (5.0-8.0); Particle Count 17832; Protein,Urine 1+ (Negative); Specific Gravity,Urine 1.026 (1.001-1.035); Squamous Epithelial Cell,Urine 27 /hpf (0-4); UA Billing (MACRO vs. MICRO) MICRO; Urobilinogen,Urine <2.0 mg/dL (<2.0); WBC,Urine 5 /hpf (0-5)
[2017-09-13 08:29] LABS: C Reactive Protein 34.7 mg/L (<10.0)
--- NOTE | 2017-09-13 08:44 | XR ---
EXAMINATION TYPE: XR chest 2V, XR shoulder complete 3 views RT, XR finger RT, 3 views coned-down left thumb DATE OF EXAM: 09/13/2017 COMPARISON: None HISTORY: 36-year-old female with pain, recent colon infection a week ago FINDINGS: CHEST: The cardiomediastinal silhouette, aorta, and pulmonary vasculature are within normal limits. Is mild interstitial prominence. Some patchy opacity peripheral right base likely atelectasis. No consolidati on or pleural effusion. Left shoulder: AC joint appears intact. Subacromial space is preserved. No acute fracture, subluxation, or dislocati on seen. Left thumb: No acute fracture, subluxation, or dislocation seen. There is minimal spurring noted at the knee join t. COMBINED IMPRESSION: 1. Chest: Mild interstitial prominence could reflect bronchitis or asthma. Additional patchy atelecta sis peripheral right base. 2. Left shoulder: No acute osseous abnormality seen. 3. Left thumb: No acute osseous abnormality seen.
[2017-09-13 09:13] VITALS: BP 118/78; PULSE 88; RESP 16; TEMP 97.8
[2017-09-13] MEDS ORDERED: DEXAMETHASONE SOD PHOSPHATE 10 MG/ML 1 ML VIAL IV STA (09:13)
== END 2017-09-13 09:27 | disposition home or self-care (01) ==
LOC: EC 06:32
DX: M13.0 Polyarthritis, unspecified (principal); D72.829 Elevated white blood cell count, unspecified; F17.200 Nicotine dependence, unspecified, uncomplicated
CPT/HCPCS: 36415; 71020; 80053; 81001; 81025; 84484; 85025; 86140; 87086; 87491; 87591; 93005; 96361; 96374; 96375; 99284